=== PATIENT | female | born 1970 | race Caucasian/White ===

== ENCOUNTER 2017-07-20 22:41 | Emergency (ER) | payer OTHER ==
[~2017-07-20] VITALS: Ht 167.6 cm; Wt 64.1 kg
[2017-07-20 22:48] VITALS: Ht 167.6 cm; Wt 64.1 kg
[2017-07-21 03:06] VITALS: BP 135/86
[2017-07-21] MEDS ORDERED: IBUP-1542 PO (03:51)
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
[2017-07-21 04:48] VITALS: PULSE 80; RESP 20; TEMP 98.8
== END 2017-07-21 04:47 | disposition home or self-care (01) ==
LOC: FTE 22:41
DX: S01.511A Laceration without foreign body of lip, initial encounter (principal); Y08.89XA Assault by other specified means, initial encounter
CPT/HCPCS: 99283